=== PATIENT | male | born 1970 | race Caucasian/White ===

== ENCOUNTER 2017-11-23 22:28 | Emergency (ER) | payer BC ==
[~2017-11-23] VITALS: Ht 172.7 cm; Wt 72.6 kg
[2017-11-23] MEDS ORDERED: Ketorolac 30mg Inj IV ONE (22:45)
[2017-11-23 23:21] LABS: HEMATOCRIT 60.3 % (42.0-52.0); MEAN CORPUSCULAR VOLUME 93 FL (80-99); PLATELET COUNT 469 K/UL (150-450); RED BLOOD COUNT 6.46 M/UL (4.70-6.10); RED CELL DISTRIBUTION WIDTH 11.5 % (11.6-14.8); WHITE BLOOD COUNT 19.3 K/UL (4.8-10.8)
[2017-11-23 23:24] LABS: HEMOGLOBIN 20.2 G/DL (14.2-18.0)
[2017-11-23 23:33] LABS: ANION GAP 23 mmol/L (5-15); BLOOD UREA NITROGEN 30 mg/dL (7-18); CALCIUM 12.5 MG/DL (8.5-10.1); CARBON DIOXIDE 17 MMOL/L (21-32); CHLORIDE 92 MMOL/L (98-107); CREATININE 2.6 MG/DL (0.55-1.30); POTASSIUM 3.5 MMOL/L (3.5-5.1); SODIUM 132 MMOL/L (136-145)
[2017-11-23 23:48] LABS: CKMB 2.7 NG/ML (0.0-3.6); CREATINE KINASE 235 U/L (26-308)
--- NOTE | 2017-11-24 01:09 | Emergency Room Report ---
History of Present Illness General Chief Complaint: General Complaint Source: Patient, EMS Present Illness HPI Is a 47-year-old male with history of ADHD. He presents with chief complaint of body cramps. He said he has been at the spot on day. He hasn't eaten or drinking much. He was in the sauna for last 2 hours. He said that whole body stiffened up and he can move. This happened to him once before. Denies any fever chills. Denies any nausea vomiting. Denies any other complaint. He's been sweating profusely because his been in the sauna. Allergies: Coded Allergies: No Known Allergies (Unverified , 11/23/17) Patient History Past Medical History: see triage record, old chart reviewed, psych hx Past Surgical History: other Pertinent Family History: none Social History: Denies: smoking Immunizations: other Reviewed Nursing Documentation: PMH: Agreed; PSxH: Agreed Nursing Documentation-PMH History Of Psychiatric Problem: Yes - adhd Review of Systems Eye: Denies: eye pain, blurred vision ENT: Denies: ear pain, nose congestion, throat swelling Respiratory: Denies: cough, shortness of breath Cardiovascular: Denies: chest pain, palpitations Gastrointestinal: Denies: abdominal pain, diarrhea, nausea, vomiting Musculoskeletal: Denies: back pain, joint pain Skin: Denies: rash Neurological: Denies: headache, numbness Endocrine: Denies: increased thirst, increased urine Hematologic/Lymphatic: Denies: easy bruising All Other Systems: negative except mentioned in HPI Physical Exam Vital Signs Date Time Temp Pulse Resp B/P (MAP) Pulse Ox O2 Delivery O2 Flow Rate FiO2 11/23/17 22:29 98.6 110 18 109/57 99 Room Air 98.6 vitals with tachycardia Sp02 EP Interpretation: reviewed, normal General Appearance: well appearing, no apparent distress, alert Head: normocephalic, atraumatic Eyes: bilateral eye PERRL, bilateral eye EOMI ENT: hearing grossly normal, normal pharynx Neck: full range of motion, supple, no meningismus Respiratory: chest non-tender, lungs clear, normal breath sounds Cardiovascular #1: regular rate, rhythm, no murmur Gastrointestinal: normal bowel sounds, non tender, no mass, no organomegaly, no bruit, non-distended Musculoskeletal: back normal, gait/station normal, normal range of motion Psychiatric: mood/affect normal Skin: warm/dry Medical Decision Making Diagnostic Impression: Primary Impression: Muscle spasm Additional Impression: ARF (acute renal failure) Qualified Codes: N17.9 - Acute kidney failure, unspecified ER Course Patient with muscle spasm secondary to severe dehydration. He said that he went surfing today; then went to work out; and then went to the spa and spent 2 hours in the sauna. Creatinine functions improving. He said he had blood work done in April and was told was normal. He felt much better now. We'll discharge home. Lab Results Impression labs with elevated WBC and BUN/creatinine Last Vital Signs Date Time Temp Pulse Resp B/P (MAP) Pulse Ox O2 Delivery O2 Flow Rate FiO2 11/23/17 23:01 98.6 11/23/17 22:29 110 18 109/57 99 Room Air Status: improved Disposition: HOME, SELF-CARE Condition: Stable Referrals: NOT CHOSEN IPA/MD,REFERRING (PCP) Additional Instructions: Increase fluids. Avoid strenuous activities. Avoid dehydration. Follow-up with your doctor within a week for recheck on your kidney function. Avoid medication like Motrin, Advil, Aleve, and other NSAIDs. Return if worse. GIA NARANJO M.D. Nov 24, 2017 01:09
[2017-11-24 01:39] VITALS: BP 109/57
[2017-11-24 02:21] LABS: HEMATOCRIT 43.1 % (42.0-52.0); HEMOGLOBIN 15.3 G/DL (14.2-18.0); MEAN CORPUSCULAR VOLUME 93 FL (80-99); PLATELET COUNT 304 K/UL (150-450); RED BLOOD COUNT 4.62 M/UL (4.70-6.10); RED CELL DISTRIBUTION WIDTH 10.9 % (11.6-14.8); WHITE BLOOD COUNT 15.9 K/UL (4.8-10.8)
[2017-11-24 02:30] LABS: BILIRUBIN, URINE NEGATIVE (NEGATIVE); GLUCOSE, URINE (UA) NEGATIVE (NEGATIVE); KETONES,URINE NEGATIVE (NEGATIVE); LEUKOCYTE ESTERASE ,URINE 1+ (NEGATIVE); NITRITE,URINE NEGATIVE (NEGATIVE); PH,URINE 5 (4.5-8.0); PROTEIN,URINE 3+ (NEGATIVE); UROBILINOGEN,URINE 1 MG/DL (0.0-1.0)
[2017-11-24 02:42] LABS: APPEARANCE,URINE CLOUDY; COLOR,URINE YELLOW
[2017-11-24 02:53] LABS: ANION GAP 12 mmol/L (5-15); BLOOD UREA NITROGEN 31 mg/dL (7-18); CARBON DIOXIDE 23 MMOL/L (21-32); CHLORIDE 104 MMOL/L (98-107); CREATININE 2.3 MG/DL (0.55-1.30); POTASSIUM 3.4 MMOL/L (3.5-5.1); SODIUM 139 MMOL/L (136-145)
[2017-11-24 03:30] VITALS: BP 109/57
== END 2017-11-24 03:31 | disposition home or self-care (01) ==
LOC: EDBD 22:28 → EMR 23:37
DX: M62.838 Other muscle spasm (principal); N17.9 Acute kidney failure, unspecified
CPT/HCPCS: 36415; 80048; 80307; 81001; 82550; 82553; 85007; 85025; 96361; 96374; 99284; J1885